=== PATIENT | male | born 1950 | race Caucasian/White ===

== ENCOUNTER 2020-05-11 10:39 | Emergency (ER) | payer MEDICARE, BC, OTHER ==
[~2020-05-11] VITALS: Ht 175.3 cm; Wt 115.1 kg
[2020-05-11] MEDS ORDERED: LOSA100T50 PO (10:54)
[2020-05-11] MEDS ORDERED: ZALE10CA PO (10:54)
[2020-05-11] MEDS ORDERED: FLUO10CA15 PO (10:54)
[2020-05-11] MEDS ORDERED: HYDR12CA PO (10:54)
[2020-05-11] MEDS ORDERED: BIMA01SOL (10:54)
[2020-05-11] MEDS ORDERED: ATOR1TAB19 PO (10:54)
[2020-05-11] MEDS ORDERED: AMLO5TAB6 PO (10:54)
[2020-05-11 11:06] LABS: BASO % 0.7 % (0.0-1.0); EOS # 0.2 10^3/uL (0.0-0.5); EOS % 2.6 % (0.0-3.0); HEMATOCRIT 41.6 % (42.0-52.0); HEMOGLOBIN 14.5 g/dl (13.5-17.5); LYMPH % 34.9 % (24.0-44.0); MEAN CORPUSCULAR HEMOGLOBIN 31.6 pg (27.0-33.0); MEAN CORPUSCULAR HGB CONC 34.9 g/dl (32.0-36.5); MEAN CORPUSCULAR VOLUME 90.6 fl (80.0-96.0); MONO # 0.9 10^3/uL (0.0-0.8); NEUTROPHILS # 2.6 10^3/uL (1.5-8.5); NEUTROPHILS % 46.1 % (36.0-66.0); PLATELET COUNT, AUTOMATED 170 10^3/uL (150-450); RED BLOOD COUNT 4.59 10^6/uL (4.30-6.10); WHITE BLOOD COUNT 5.7 10^3/uL (4.0-10.0)
[2020-05-11 11:18] LABS: INR 0.97; PROTHROMBIN TIME 12.6 SECONDS (11.8-14.0)
[2020-05-11 11:19] LABS: PARTIAL THROMBOPLASTIN TIME 29.6 SECONDS (25.0-38.4)
[2020-05-11 11:41] LABS: ALBUMIN 4.1 GM/DL (3.2-5.2); BILIRUBIN,DIRECT 0.2 MG/DL (0.0-0.2); BILIRUBIN,TOTAL 0.6 MG/DL (0.2-1.0); FREE T4 0.84 NG/DL (0.76-1.46); THYROID STIMULATING HORMONE 2.11 uIU/ML (0.358-3.740); TOTAL PROTEIN 7.3 GM/DL (6.4-8.2)
[2020-05-11] MEDS ORDERED: ISOVUE-370 76% 100ML VIAL As Ordered ONE (11:42)
--- NOTE | 2020-05-11 11:46 | REP ---
CHEST, SINGLE VIEW: No comparison. Single view of the chest is performed. No acute infiltrate is seen bilaterally. There appears to be mild cardiomegaly. There is mild tortuosity of the thoracic aorta. The mediastinal silhouette is otherwise unremarkable. IMPRESSION: No acute pulmonary disease. Electronically Signed by Gino Abreu MD 05/15/2020 06:28 P
--- NOTE | 2020-05-11 12:37 | REP ---
REASON: Chest pain times 1 week. PRIORS: None. CONTRAST: 100 mL Isovue 370. There is excellent visualization of the pulmonary arterial vasculature. There are no focal filling defects present that would be considered consistent with pulmonary emboli. There are no pleural or pericardial effusions. The imaged osseous structures are within normal limits. Evaluation of the lung muñoz shows a pleural-based 5 mm sized nodule in the anterior segment of the right upper lobe. IMPRESSION: 1. There is no pulmonary embolus. 2. 5 mm size right upper lobe nodule. According to the revised Fleischner Society criteria, this represents a category 3 lesion for which 6-month followup chest CT is recommended. Electronically Signed by César Farah DO 05/11/2020 03:05 P
[2020-05-11] MEDS ORDERED: CARVedilol 6.25 MG TAB PO ONE (12:45)
--- NOTE | 2020-05-11 13:38 | REP ---
REASON: Abdominal pain times one week. PRIORS: None. CONTRAST: 100 mL Isovue-370. Seen in the lateral segment of the left lobe of the liver, there is an incidental 1-cm sized cyst. No enhancing hepatic lesions are present. The gallbladder is contracted but otherwise unremarkable. The spleen, pancreas, adrenal glands, and kidneys are within normal limits. The abdominal aorta and para-aortic regions are within normal limits. No free fluid or free air is seen in the abdomen or pelvis. The intra-abdominal and intrapelvic bowel loops and their mesenteries are within normal limits. There is a subtle dusky hue to the small bowel mesentery to the left of the midline, which is nonspecific. There is no evidence of an intra-abdominal or intrapelvic mass or adenopathy. Bone window technique throughout the examination shows the osseous structures to be within normal limits for the patient's age of 70 years. 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 IMPRESSION: There is no evidence of acute intra-abdominal or intrapelvic disease. There is an incidental small cyst in the liver, as described above. 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 Electronically Signed by César Farah DO 05/11/2020 03:05 P
[2020-05-11] MEDS ORDERED: CARV6.25 PO (14:11)
[2020-05-11 14:15] VITALS: BP 153/68
--- NOTE | 2020-05-11 16:01 | ECGEPIP ---
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
--- NOTE | 2020-05-11 16:05 | ECGEPIP ---
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
--- NOTE | 2020-05-12 07:01 | ED PDOC ---
Post-Departure Follow-Up dr eid faxed formal report of cta chest for fu Aminata Ruiz MD May 12, 2020 07:01
== END 2020-05-11 14:24 | disposition home or self-care (01) ==
LOC: M ED 10:39
DX: I10 Essential (primary) hypertension (principal); R07.9 Chest pain, unspecified; R10.9 Unspecified abdominal pain; Z79.899 Other long term (current) drug therapy
CPT/HCPCS: 36415; 71045; 71275; 74177; 80047; 80076; 81001; 83690; 84439; 84443; 84484; 85025; 85610; 85730; 93005; 93041; 94760; 99285; Q9967

== ENCOUNTER → 2020-07-11 | Outpatient (REF) | payer MEDICARE, BC, OTHER ==
[~2020-07-11] MED LIST: AMLO1TAB24 PO; ATOR1TAB19 PO; BIMA01SOL; CARV6.25 PO; FLUO10CA16 PO; HYDR12CA PO; LOSA100T50 PO; ZALE10CA PO
[2020-08-25 07:16] LABS: ALBUMIN 4.2 GM/DL (3.2-5.2); BLOOD UREA NITROGEN 20 MG/DL (7-18); CALCIUM LEVEL 9.5 MG/DL (8.8-10.2); CARBON DIOXIDE LEVEL 32 MEQ/L (21-32); CHLORIDE LEVEL 104 MEQ/L (98-107); CREATININE FOR GFR 1.04 MG/DL (0.70-1.30); GLOMERULAR FILTRATION RATE > 60.0 (>49); GLUCOSE, FASTING 101 MG/DL (70-100); PHOSPHORUS LEVEL 3.7 MG/DL (2.5-4.9); POTASSIUM SERUM 4.4 MEQ/L (3.5-5.1); SODIUM LEVEL 140 MEQ/L (136-145); URIC ACID 4.9 MG/DL (3.5-7.2)
== END ==
LOC: M LABWUC 06:14
PROVIDERS: ATTEND Physician Assistant
DX: M79.674 Pain in right toe(s) (principal)

== ENCOUNTER → 2021-04-11 | Outpatient (CLI) | payer MEDICARE, BC, OTHER ==
[2021-04-11 11:30] LABS: HEMOGLOBIN A1c 5.5 %
[2021-04-11 11:47] LABS: FREE T3 2.7 PG/ML (2.2-4.0); FREE T4 0.74 NG/DL (0.76-1.46); THYROID STIMULATING HORMONE 2.35 uIU/ML (0.358-3.740); URIC ACID 6.4 MG/DL (3.5-7.2)
[2021-04-11 11:49] LABS: ESTRADIOL 26.1 PG/ML (<39.8); TOTAL 25(OH) VITAMIN D 33.3 NG/ML (30.0-100.0)
[2021-04-12 19:08] LABS: INSULIN LEVEL 19.6 uIU/mL (2.6-24.9); TESTOSTERONE FREE (DIRECT) 4.7 pg/mL (6.6-18.1)
== END ==
LOC: M WUC 08:55
PROVIDERS: ATTEND Family Medicine
DX: R63.5 Abnormal weight gain (principal); R53.83 Other fatigue; Z13.1 Encounter for screening for diabetes mellitus; Z79.899 Other long term (current) drug therapy

== ENCOUNTER → 2021-07-17 | Outpatient (CLI) | payer MEDICARE, BC, OTHER ==
[2021-07-17 10:32] LABS: BASO # 0.1 10^3/uL (0.0-0.2); BASO % 0.9 % (0.0-1.0); EOS # 0.3 10^3/uL (0.0-0.5); EOS % 5.4 % (0.0-3.0); HEMATOCRIT 42.4 % (42.0-52.0); HEMOGLOBIN 14.7 g/dl (13.5-17.5); LYMPH # 1.5 10^3/uL (1.5-5.0); LYMPH % 26.4 % (24.0-44.0); MEAN CORPUSCULAR HEMOGLOBIN 31.9 pg (27.0-33.0); MEAN CORPUSCULAR HGB CONC 34.7 g/dl (32.0-36.5); MONO % 16.6 % (2.0-8.0); NEUTROPHILS # 2.9 10^3/uL (1.5-8.5); NEUTROPHILS % 50.5 % (36.0-66.0); PLATELET COUNT, AUTOMATED 147 10^3/uL (150-450); RED BLOOD COUNT 4.61 10^6/uL (4.30-6.10); WHITE BLOOD COUNT 5.7 10^3/uL (4.0-10.0)
[2021-07-17 11:05] LABS: ALT/SGPT 49 U/L (12-78); BILIRUBIN,TOTAL 0.7 MG/DL (0.2-1.0); BLOOD UREA NITROGEN 32 MG/DL (7-18); CARBON DIOXIDE LEVEL 32 MEQ/L (21-32); CHLORIDE LEVEL 103 MEQ/L (98-107); CREATININE FOR GFR 0.93 MG/DL (0.70-1.30); GLOMERULAR FILTRATION RATE > 60.0 (>42); GLUCOSE, FASTING 114 MG/DL (70-100); NT-PRO BNP 16 PG/ML (<125); POTASSIUM SERUM 4.3 MEQ/L (3.5-5.1); SODIUM LEVEL 139 MEQ/L (136-145)
== END ==
LOC: M WUC 08:39
PROVIDERS: ATTEND Internal Medicine Cardiovascular Disease
DX: I11.9 Hypertensive heart disease without heart failure (principal)

== ENCOUNTER → 2022-05-14 | Outpatient (CLI) | payer MEDICARE, OTHER, BC ==
[~2022-05-14] MED LIST changes: -FLUO10CA16 PO; +FLUO10CA18 PO; +LOSA100T45 PO; -LOSA100T50 PO
[2022-05-14 10:43] LABS: HEMATOCRIT 38.8 % (42.0-52.0); HEMOGLOBIN 13.6 g/dl (13.5-17.5); MEAN CORPUSCULAR HEMOGLOBIN 32.5 pg (27.0-33.0); MEAN CORPUSCULAR HGB CONC 35.1 g/dl (32.0-36.5); MEAN CORPUSCULAR VOLUME 92.6 fl (80.0-96.0); PLATELET COUNT, AUTOMATED 157 10^3/uL (150-450); RED BLOOD COUNT 4.19 10^6/uL (4.30-6.10); WHITE BLOOD COUNT 5.4 10^3/uL (4.0-10.0)
[2022-05-14 11:19] LABS: BLOOD UREA NITROGEN 30 MG/DL (7-18); CALCIUM LEVEL 9.6 MG/DL (8.8-10.2); CARBON DIOXIDE LEVEL 29 MEQ/L (21-32); CHLORIDE LEVEL 107 MEQ/L (98-107); CREATININE FOR GFR 0.97 MG/DL (0.70-1.30); FREE T4 0.81 NG/DL (0.76-1.46); GLOMERULAR FILTRATION RATE > 60.0 (>42); GLUCOSE, FASTING 117 MG/DL (70-100); SODIUM LEVEL 141 MEQ/L (136-145)
== END ==
LOC: M WUC 08:22
PROVIDERS: ATTEND Physician Assistant
DX: R53.83 Other fatigue (principal); I11.9 Hypertensive heart disease without heart failure

== ENCOUNTER → 2023-04-06 | Outpatient (CLI) | payer MEDICARE, BC, OTHER ==
[~2023-04-06] MED LIST changes: -LOSA100T45 PO; +LOSA100T46 PO
== END ==
LOC: M SLEEP 20:00
PROVIDERS: ATTEND Internal Medicine Pulmonary Disease
DX: G47.33 Obstructive sleep apnea (adult) (pediatric) (principal)

== ENCOUNTER → 2023-05-26 | Outpatient (CLI) | payer OTHER, MEDICARE | LOC: M PLAIMG 11:39 | PROVIDERS: ATTEND Orthopaedic Surgery | DX: M25.571 Pain in right ankle and joints of right foot (principal) ==

== ENCOUNTER → 2024-03-28 | Outpatient (REF) | payer MEDICARE, OTHER ==
[~2024-03-28] MED LIST changes: +CHLO125TA PO; +SPIR-10 PO
[2024-03-28 14:50] LABS: RHEUMATOID FACTOR QUANT < 3.5 IU/ML (<14)
[2024-03-29 21:09] LABS: ANTINUCLEAR ANTIBODIES DIRECT Negative (Negative); CYCLIC CITRULLINATED PEPTIDE 9 units (0-19)
== END ==
LOC: M LAB REF 12:26
PROVIDERS: ATTEND Internal Medicine
DX: M25.571 Pain in right ankle and joints of right foot (principal)

== ENCOUNTER 2024-04-04 08:23 | Day surgery (SDC) | payer MEDICARE, BC ==
[~2024-04-04] VITALS: Ht 175.3 cm; Wt 117.5 kg
[~2024-04-04 08:23] MED LIST changes: +FLUO-290 PO; -FLUO10CA18 PO
[2024-04-04] MEDS: NS 1,000 ML IV ONE (09:12)
[2024-04-04] MEDS ORDERED: propofoL 200 MG/20 ML VIAL As Ordered ONE (10:30)
[2024-04-04 10:54] VITALS: TEMP 97.8
[2024-04-04 11:15] VITALS: BP 162/87; O2SAT 97
== END 2024-04-04 11:25 | disposition home or self-care (01) ==
LOC: M OPP 08:23
PROVIDERS: ATTEND Internal Medicine Gastroenterology
DX: Z12.11 Encounter for screening for malignant neoplasm of colon (principal); K57.30 Diverticulosis of large intestine without perforation or abscess without bleeding; K64.0 First degree hemorrhoids; I10 Essential (primary) hypertension; E78.00 Pure hypercholesterolemia, unspecified; G47.30 Sleep apnea, unspecified; Z79.899 Other long term (current) drug therapy

== ENCOUNTER → 2025-07-26 | Outpatient (CLI) | payer MEDICARE, BC ==
[~2025-07-26] MED LIST changes: +HYDR12.510 PO; -HYDR12CA PO
== END ==
LOC: M PLAIMG 08:29
PROVIDERS: ATTEND Internal Medicine Cardiovascular Disease
DX: I77.810 Thoracic aortic ectasia (principal); I35.8 Other nonrheumatic aortic valve disorders; I11.9 Hypertensive heart disease without heart failure; R00.1 Bradycardia, unspecified